=== PATIENT | male | born 1950 | race Caucasian/White ===

== ENCOUNTER 2019-02-27 06:47 | Day surgery (SDC) | payer OTHER ==
[2019-02-27 07:33] VITALS: BMI 32.8
[2019-02-27 08:31] VITALS: TEMP 97.9
[2019-02-27 09:07] VITALS: PULSE 60
[2019-02-27 09:29] VITALS: BP 120/68
--- NOTE | 2019-02-28 10:23 | PATH ---
Surgical Pathology Report Patient Name: JULEE TRAMMELL [facility]. Rec. #: [id number] /Age/Gender: 1950 (Age: 68) / M Account: [id number] Location: U-ENDOSCOPY Taken: 02/27/2019 Received: 02/27/2019 Reported: 02/28/2019 Physicians: Angie Guo M.D. Specimen(s) Received A: DUODENUM, SECOND PORTION AND BULB B: ANTRUM C: GE JUNCTION Clinical History Abdominal pain Postoperative diagnosis: GERD, gastritis Final Diagnosis A. DUODENUM, SECOND PORTION AND BULB, BIOPSY: DUODENAL MUCOSA WITHOUT SIGNIFICANT PATHOLOGIC FINDINGS. B. STOMACH, ANTRUM, BIOPSY: GASTRIC ANTRAL MUCOSA WITH MILD CHRONIC GASTRITIS. IMMUNOHISTOCHEMICAL STAIN FOR H. PYLORI IS NEGATIVE. C. GE JUNCTION, BIOPSY: SQUAMOCOLUMNAR MUCOSA WITH MILD CHRONIC INFLAMMATION AND CHANGES OF SEVERE REFLUX ESOPHAGITIS. NO INTESTINAL METAPLASIA OR DYSPLASIA IDENTIFIED. Electronically Signed Cathy Mills M.D. Gross Description A. Received in formalin, labeled "second portion and bulb of duodenum biopsy" are 4 soto, irregular portions of soft tissue ranging from 0.2-0.5 cm. in greatest dimension. The specimens are submitted in toto in one cassette. B. Received in formalin, labeled "antrum biopsy" are 4 soto, irregular portions of soft tissue ranging from 0.1-0.5 cm. in greatest dimension. The specimens are submitted in toto in one cassette. C. Received in formalin, labeled "GE junction biopsy" are 4 soto, irregular portions of soft tissue ranging from 0.2-0.5 cm. in greatest dimension. The specimens are submitted in toto in one cassette. 02/27/2019 [facility]02/27/2019
== END 2019-02-27 09:29 | disposition home or self-care (01) ==
LOC: JASU-ENDO 06:47
PROVIDERS: ATTEND Internal Medicine Gastroenterology
PROC: 0DB68ZX Excision of Stomach, Via Natural or Artificial Opening Endoscopic, Diagnostic (ICD-10-PCS; 2019-02-27)
PROC: 0DB48ZX Excision of Esophagogastric Junction, Via Natural or Artificial Opening Endoscopic, Diagnostic (ICD-10-PCS; 2019-02-27)
PROC: 0DB98ZX Excision of Duodenum, Via Natural or Artificial Opening Endoscopic, Diagnostic (ICD-10-PCS; principal; 2019-02-27 08:00)
DX: K29.50 Unspecified chronic gastritis without bleeding (principal); K21.0 Gastro-esophageal reflux disease with esophagitis; K44.9 Diaphragmatic hernia without obstruction or gangrene; R68.81 Early satiety; I10 Essential (primary) hypertension; E11.9 Type 2 diabetes mellitus without complications; E78.5 Hyperlipidemia, unspecified; I25.10 Atherosclerotic heart disease of native coronary artery without angina pectoris; I25.2 Old myocardial infarction; Z95.5 Presence of coronary angioplasty implant and graft
CPT/HCPCS: 82962; 88305-TC; 88342-TC

== ENCOUNTER 2020-11-29 05:01 | Day surgery (SDC) | payer BC ==
[2020-11-27 13:43] VITALS: BMI 31.6
[2020-11-29 11:46] VITALS: TEMP 97.3
[2020-11-29 12:52] VITALS: BP 133/70; PULSE 57
== END 2020-11-29 12:40 | disposition home or self-care (01) ==
LOC: JASU-ENDO 05:01
PROVIDERS: ATTEND Internal Medicine Gastroenterology
PROC: 0DBN8ZX Excision of Sigmoid Colon, Via Natural or Artificial Opening Endoscopic, Diagnostic (ICD-10-PCS; 2020-11-29)
PROC: 0DB98ZX Excision of Duodenum, Via Natural or Artificial Opening Endoscopic, Diagnostic (ICD-10-PCS; 2020-11-29)
PROC: 0DB78ZX Excision of Stomach, Pylorus, Via Natural or Artificial Opening Endoscopic, Diagnostic (ICD-10-PCS; 2020-11-29)
PROC: 0DB48ZX Excision of Esophagogastric Junction, Via Natural or Artificial Opening Endoscopic, Diagnostic (ICD-10-PCS; 2020-11-29)
PROC: 0DBP8ZX Excision of Rectum, Via Natural or Artificial Opening Endoscopic, Diagnostic (ICD-10-PCS; principal; 2020-11-29 10:50)
DX: Z12.11 Encounter for screening for malignant neoplasm of colon (principal); D12.8 Benign neoplasm of rectum; D12.5 Benign neoplasm of sigmoid colon; K57.30 Diverticulosis of large intestine without perforation or abscess without bleeding; K64.8 Other hemorrhoids; K21.9 Gastro-esophageal reflux disease without esophagitis; K44.9 Diaphragmatic hernia without obstruction or gangrene; K29.40 Chronic atrophic gastritis without bleeding; K25.3 Acute gastric ulcer without hemorrhage or perforation; K22.2 Esophageal obstruction; Z68.31 Body mass index [BMI] 31.0-31.9, adult; R68.81 Early satiety; Z86.010 Personal history of colon polyps; I10 Essential (primary) hypertension; E11.9 Type 2 diabetes mellitus without complications
CPT/HCPCS: 88305-TC; 88342-TC

== ENCOUNTER 2022-08-20 13:55 | Inpatient (IN) | payer OTHER ==
[2022-08-20 15:15] LABS: BASO % 0.2 % (0-2.0); EOS % 4.5 % (0-4.5); HEMATOCRIT 39.4 % (35.4-49); HEMOGLOBIN 12.9 GM/dL (11.7-16.9); LYMPH % 24.7 % (8-40); MCH 29.6 pg (25.7-33.7); MCHC 32.6 g/dl (32.0-35.9); MEAN CELL VOLUME 90.8 fl (80-96); MEAN PLT VOLUME 11.3 fl (7.5-11.1); MONO % 1.8 % (3.8-10.2); NEUT % 68.8 % (42.8-82.8); RBC 4.34 M/mm3 (4.00-5.60); RDW 13.7 % (11.9-15.9); WHITE BLOOD COUNT 2.9 K/mm3 (4.0-10.0)
[2022-08-20 15:20] LABS: INR 1.09 (0.83-1.09); PROTHROMBIN TIME (PATIENT) 12.6 SEC (9.7-13.0)
[2022-08-20 15:23] LABS: ACTIVATED PTT 30.2 SECONDS (25.2-36.5)
[2022-08-20 15:26] LABS: PLATELET COUNT 12 10^3/uL (134-434)
[2022-08-20 15:31] LABS: CHLORIDE 104 mmol/L (98-107); POTASSIUM 4.1 mmol/L (3.5-5.1); SODIUM 138 mmol/L (136-145)
[2022-08-20 15:32] LABS: BLOOD UREA NITROGEN 12.2 mg/dL (7-18)
[2022-08-20 15:33] LABS: ALBUMIN 3.4 g/dl (3.4-5.0); ANION GAP 8 MMOL/L (8-16); CALCIUM 8.8 mg/dL (8.5-10.1); CO2 26 mmol/L (21-32)
[2022-08-20 15:34] LABS: GLUCOSE,RANDOM 167 mg/dL (74-106)
[2022-08-20 15:36] LABS: SGPT/ALT 66 U/L (13-61)
[2022-08-20 15:37] LABS: CREATININE 0.8 mg/dL (0.55-1.3); SGOT/AST 66 U/L (15-37)
[2022-08-20 15:38] LABS: BILIRUBIN,TOTAL 0.5 mg/dL (0.2-1); TOT PROT 7.4 g/dl (6.4-8.2)
[2022-08-20 15:39] LABS: ALK PHOS 58 U/L (45-117)
[2022-08-20 16:15] LABS: LDH 239 U/L (87-246)
[2022-08-20 16:32] LABS: RETICULOCYTES 0.94 % (0.5-1.5)
[2022-08-20] MEDS ORDERED: DEXAMETHASONE SOD PHOSPHATE 10 MG/1 ML VIAL IVPB ONE (21:25)
[2022-08-20] MEDS: INSULIN SLIDING SCALE (NOVOLOG) 1 VIAL SQ SCH (22:29)
[2022-08-21] MEDS: INSULIN SLIDING SCALE (NOVOLOG) 1 VIAL SQ SCH ×4 (06:29→21:40)
[2022-08-21 09:12] LABS: HEMATOCRIT 39.9 % (35.4-49); HEMOGLOBIN 13.4 GM/dL (11.7-16.9); MCH 29.9 pg (25.7-33.7); MCHC 33.6 g/dl (32.0-35.9); MEAN CELL VOLUME 89.1 fl (80-96); MEAN PLT VOLUME 11.1 fl (7.5-11.1); RBC 4.48 M/mm3 (4.00-5.60); RDW 13.9 % (11.9-15.9)
[2022-08-21] MEDS: FOLIC ACID 1 MG TABLET (FP) PO SCH (09:27)
[2022-08-21] MEDS: FUROSEMIDE 40 MG TABLET (FP) PO SCH (09:27)
[2022-08-21] MEDS: RAMIPRIL 5 MG CAPSULE PO SCH (09:28)
[2022-08-21 09:29] LABS: PLATELET COUNT 6 10^3/uL (134-434); WHITE BLOOD COUNT 1.7 K/mm3 (4.0-10.0)
[2022-08-21 09:35] LABS: ALBUMIN 3.5 g/dl (3.4-5.0); BLOOD UREA NITROGEN 16.5 mg/dL (7-18); CALCIUM 8.6 mg/dL (8.5-10.1); MAGNESIUM 1.8 mg/dL (1.8-2.4)
[2022-08-21 09:37] LABS: CREATININE 0.9 mg/dL (0.55-1.3); PHOSPHOROUS 1.8 mg/dL (2.5-4.9)
[2022-08-21 09:40] LABS: BILIRUBIN,TOTAL 0.7 mg/dL (0.2-1); TOT PROT 7.7 g/dl (6.4-8.2)
[2022-08-21] MEDS ORDERED: CYANOCOBALAMIN (VITAMIN B-12) 1000 MCG/1 ML VIAL IM SCH (10:00)
[2022-08-21] MEDS ORDERED: DEXAMETHASONE 4 MG TABLET (FP) PO SCH (10:00)
[2022-08-21] MEDS ORDERED: INSULIN (NOVOLOG) ASPART 100 UNITS/ML 10ML VIAL ONE ×3 (11:26→21:38)
[2022-08-21 11:49] LABS: ANISOCYTOSIS 2+; MACROCYTOSIS 0; OVALOCYTE 2+
[2022-08-21] MEDS ORDERED: ACETAMINOPHEN 325 MG TABLET (FP) PO PRN (11:49)
[2022-08-21] MEDS ORDERED: IMMUN GLOB G(IGG)/PRO/IGA 0-50 400 ML, IMMUN GLOB G(IGG)/PRO/IGA 0-50 100 ML IVPB ONE (12:00)
[2022-08-21] MEDS: DEXAMETHASONE 4 MG TABLET (FP) PO SCH (21:32)
[2022-08-22] MEDS: INSULIN SLIDING SCALE (NOVOLOG) 1 VIAL SQ SCH ×4 (06:03→21:34)
[2022-08-22] MEDS ORDERED: INSULIN (LEVEMIR) 100 UNITS/ML UNITS SQ SCH (10:00)
[2022-08-22 10:03] LABS: HEMATOCRIT 36.2 % (35.4-49); HEMOGLOBIN 12.4 GM/dL (11.7-16.9); MCH 30.5 pg (25.7-33.7); MCHC 34.3 g/dl (32.0-35.9); MEAN CELL VOLUME 88.8 fl (80-96); MEAN PLT VOLUME 8.1 fl (7.5-11.1); RBC 4.07 M/mm3 (4.00-5.60); WHITE BLOOD COUNT 3.9 K/mm3 (4.0-10.0)
[2022-08-22] MEDS: CYANOCOBALAMIN (VITAMIN B-12) 1000 MCG/1 ML VIAL IM SCH (10:04)
[2022-08-22] MEDS: FOLIC ACID 1 MG TABLET (FP) PO SCH (10:04)
[2022-08-22] MEDS: FUROSEMIDE 40 MG TABLET (FP) PO SCH (10:04)
[2022-08-22] MEDS: RAMIPRIL 5 MG CAPSULE PO SCH (10:05)
[2022-08-22 10:07] LABS: PLATELET COUNT 27 10^3/uL (134-434)
[2022-08-22 10:23] LABS: ALBUMIN 3.2 g/dl (3.4-5.0); BLOOD UREA NITROGEN 19.9 mg/dL (7-18); CALCIUM 8.7 mg/dL (8.5-10.1)
[2022-08-22 10:26] LABS: CREATININE 0.9 mg/dL (0.55-1.3)
[2022-08-22 10:28] LABS: BILIRUBIN,TOTAL 0.6 mg/dL (0.2-1); TOT PROT 8.2 g/dl (6.4-8.2)
[2022-08-22] MEDS ORDERED: IMMUN GLOB G(IGG)/PRO/IGA 0-50 400 ML IVPB ONE (11:00)
[2022-08-22] MEDS: INSULIN (LEVEMIR) 100 UNITS/ML UNITS SQ SCH ×2 (11:03→21:33)
[2022-08-22 16:41] VITALS: BMI 28.3
[2022-08-22 18:00] LABS: HEMATOCRIT 36.4 % (35.4-49); HEMOGLOBIN 11.9 GM/dL (11.7-16.9); MCHC 32.6 g/dl (32.0-35.9); RBC 3.96 M/mm3 (4.00-5.60); RDW 13.7 % (11.9-15.9); WHITE BLOOD COUNT 4.6 K/mm3 (4.0-10.0)
[2022-08-22 18:06] LABS: PLATELET COUNT 22 10^3/uL (134-434)
[2022-08-22] MEDS ORDERED: INSULIN (NOVOLOG) ASPART 100 UNITS/ML 10ML VIAL ONE (21:04)
[2022-08-22] MEDS ORDERED: INSULIN (LEVEMIR) 100 UNITS/ML UNITS SQ ONE (21:04)
[2022-08-22] MEDS: DEXAMETHASONE 4 MG TABLET (FP) PO SCH (21:27)
[2022-08-23] MEDS: INSULIN (LEVEMIR) 100 UNITS/ML UNITS SQ SCH ×2 (06:04→21:22)
[2022-08-23] MEDS: INSULIN SLIDING SCALE (NOVOLOG) 1 VIAL SQ SCH ×4 (06:04→21:23)
[2022-08-23 08:54] LABS: HEMATOCRIT 34.3 % (35.4-49); HEMOGLOBIN 11.6 GM/dL (11.7-16.9); MCH 30.1 pg (25.7-33.7); MEAN CELL VOLUME 88.5 fl (80-96); MEAN PLT VOLUME 8.1 fl (7.5-11.1); RBC 3.87 M/mm3 (4.00-5.60); RDW 13.8 % (11.9-15.9); WHITE BLOOD COUNT 3.3 K/mm3 (4.0-10.0)
[2022-08-23 09:18] LABS: POTASSIUM 4.3 mmol/L (3.5-5.1)
[2022-08-23] MEDS: FOLIC ACID 1 MG TABLET (FP) PO SCH (09:19)
[2022-08-23] MEDS: RAMIPRIL 5 MG CAPSULE PO SCH (09:19)
[2022-08-23] MEDS: CYANOCOBALAMIN (VITAMIN B-12) 1000 MCG/1 ML VIAL IM SCH (09:19)
[2022-08-23] MEDS: FUROSEMIDE 40 MG TABLET (FP) PO SCH (09:19)
[2022-08-23 09:20] LABS: ALBUMIN 2.8 g/dl (3.4-5.0); BLOOD UREA NITROGEN 23.8 mg/dL (7-18)
[2022-08-23 09:23] LABS: CALCIUM 8.8 mg/dL (8.5-10.1)
[2022-08-23 09:24] LABS: CREATININE 0.9 mg/dL (0.55-1.3)
[2022-08-23 09:26] LABS: BILIRUBIN,TOTAL 0.4 mg/dL (0.2-1); TOT PROT 8.1 g/dl (6.4-8.2)
[2022-08-23] MEDS ORDERED: INSULIN SLIDING SCALE (NOVOLOG) 1 VIAL SQ SCH (11:00)
[2022-08-23 11:01] LABS: PLATELET COUNT 14 10^3/uL (134-434)
[2022-08-23] MEDS ORDERED: INSULIN (NOVOLOG) ASPART 100 UNITS/ML 10ML VIAL ONE ×2 (16:52→21:09)
[2022-08-23] MEDS: INSULIN (NOVOLOG) ASPART 100 UNITS/ML 10ML VIAL SQ SCH (17:07)
[2022-08-23] MEDS: DEXAMETHASONE 4 MG TABLET (FP) PO SCH (21:19)
[2022-08-24] MEDS: INSULIN SLIDING SCALE (NOVOLOG) 1 VIAL SQ SCH ×4 (06:14→21:40)
[2022-08-24] MEDS: INSULIN (LEVEMIR) 100 UNITS/ML UNITS SQ SCH (06:14)
[2022-08-24] MEDS: INSULIN (NOVOLOG) ASPART 100 UNITS/ML 10ML VIAL SQ SCH (06:14)
[2022-08-24] MEDS: FUROSEMIDE 40 MG TABLET (FP) PO SCH (09:10)
[2022-08-24] MEDS: FOLIC ACID 1 MG TABLET (FP) PO SCH (09:10)
[2022-08-24] MEDS: PANTOPRAZOLE 40 MG TABLET PO SCH (09:10)
[2022-08-24 09:18] LABS: HEMATOCRIT 37.1 % (35.4-49); HEMOGLOBIN 12.6 GM/dL (11.7-16.9); MCH 29.9 pg (25.7-33.7); MCHC 33.9 g/dl (32.0-35.9); MEAN CELL VOLUME 88.2 fl (80-96); MEAN PLT VOLUME 8.7 fl (7.5-11.1); RBC 4.21 M/mm3 (4.00-5.60); RDW 13.9 % (11.9-15.9); WHITE BLOOD COUNT 3.5 K/mm3 (4.0-10.0)
[2022-08-24 09:23] LABS: POTASSIUM 4.2 mmol/L (3.5-5.1)
[2022-08-24 09:36] LABS: ALBUMIN 3.1 g/dl (3.4-5.0); CALCIUM 8.7 mg/dL (8.5-10.1)
[2022-08-24 09:37] LABS: BLOOD UREA NITROGEN 24.1 mg/dL (7-18)
[2022-08-24 09:40] LABS: BILIRUBIN,TOTAL 0.6 mg/dL (0.2-1); TOT PROT 8.3 g/dl (6.4-8.2)
[2022-08-24 10:10] LABS: PLATELET COUNT 11 10^3/uL (134-434)
[2022-08-24] MEDS: RAMIPRIL 5 MG CAPSULE PO SCH (10:53)
[2022-08-24] MEDS: CYANOCOBALAMIN (VITAMIN B-12) 1000 MCG/1 ML VIAL IM SCH (10:53)
[2022-08-24] MEDS ORDERED: INSULIN (NOVOLOG) ASPART 100 UNITS/ML 10ML VIAL ONE ×2 (11:48→17:10)
[2022-08-24 20:55] LABS: HEMATOCRIT 34.1 % (35.4-49); HEMOGLOBIN 11.3 GM/dL (11.7-16.9); MCH 29.9 pg (25.7-33.7); MCHC 33.1 g/dl (32.0-35.9); MEAN CELL VOLUME 90.3 fl (80-96); MEAN PLT VOLUME 8.5 fl (7.5-11.1); RBC 3.78 M/mm3 (4.00-5.60); RDW 13.8 % (11.9-15.9); WHITE BLOOD COUNT 4.4 K/mm3 (4.0-10.0)
[2022-08-24 20:57] LABS: PLATELET COUNT 35 10^3/uL (134-434)
[2022-08-25] MEDS: INSULIN SLIDING SCALE (NOVOLOG) 1 VIAL SQ SCH ×4 (06:03→21:38)
[2022-08-25] MEDS: RAMIPRIL 5 MG CAPSULE PO SCH (10:39)
[2022-08-25] MEDS: FOLIC ACID 1 MG TABLET (FP) PO SCH (10:40)
[2022-08-25] MEDS: CYANOCOBALAMIN (VITAMIN B-12) 1000 MCG/1 ML VIAL IM SCH (10:40)
[2022-08-25] MEDS: PANTOPRAZOLE 40 MG TABLET PO SCH (10:40)
[2022-08-25] MEDS: FUROSEMIDE 40 MG TABLET (FP) PO SCH (10:40)
[2022-08-25] MEDS ORDERED: INSULIN (NOVOLOG) ASPART 100 UNITS/ML 10ML VIAL ONE (11:20)
[2022-08-25 12:24] LABS: POTASSIUM 3.6 mmol/L (3.5-5.1)
[2022-08-25 12:29] LABS: CALCIUM 8.7 mg/dL (8.5-10.1)
[2022-08-25 12:30] LABS: ALBUMIN 2.8 g/dl (3.4-5.0); BLOOD UREA NITROGEN 25.8 mg/dL (7-18)
[2022-08-25 12:32] LABS: BILIRUBIN,TOTAL 0.8 mg/dL (0.2-1)
[2022-08-25 12:35] LABS: TOT PROT 7.1 g/dl (6.4-8.2)
[2022-08-25 13:42] LABS: EOS % 0.4 % (0-4.5); HEMOGLOBIN 11.9 GM/dL (11.7-16.9); LYMPH % 30.3 % (8-40); MCH 30.3 pg (25.7-33.7); MCHC 34.1 g/dl (32.0-35.9); MEAN CELL VOLUME 88.9 fl (80-96); MEAN PLT VOLUME 8.5 fl (7.5-11.1); MONO % 13.4 % (3.8-10.2); NEUT % 55.9 % (42.8-82.8); RBC 3.94 M/mm3 (4.00-5.60); RDW 13.8 % (11.9-15.9); WHITE BLOOD COUNT 3.8 K/mm3 (4.0-10.0)
[2022-08-25 13:46] LABS: PLATELET COUNT 17 10^3/uL (134-434)
[2022-08-26] MEDS: INSULIN SLIDING SCALE (NOVOLOG) 1 VIAL SQ SCH ×4 (06:03→23:00)
[2022-08-26 09:24] LABS: HEMATOCRIT 36.9 % (35.4-49); MCH 29.6 pg (25.7-33.7); MCHC 32.5 g/dl (32.0-35.9); MEAN PLT VOLUME 9.2 fl (7.5-11.1); RBC 4.06 M/mm3 (4.00-5.60); RDW 13.8 % (11.9-15.9)
[2022-08-26 09:42] LABS: PLATELET COUNT 15 10^3/uL (134-434)
[2022-08-26 09:43] LABS: POTASSIUM 3.9 mmol/L (3.5-5.1)
[2022-08-26 09:51] LABS: ALBUMIN 2.7 g/dl (3.4-5.0); BLOOD UREA NITROGEN 19.3 mg/dL (7-18)
[2022-08-26 09:54] LABS: BILIRUBIN,TOTAL 0.3 mg/dL (0.2-1); TOT PROT 6.9 g/dl (6.4-8.2)
[2022-08-26 09:56] LABS: CREATININE 0.9 mg/dL (0.55-1.3)
[2022-08-26] MEDS: PANTOPRAZOLE 40 MG TABLET PO SCH (10:03)
[2022-08-26] MEDS: FUROSEMIDE 40 MG TABLET (FP) PO SCH (10:03)
[2022-08-26] MEDS: FOLIC ACID 1 MG TABLET (FP) PO SCH (10:03)
[2022-08-26] MEDS: RAMIPRIL 5 MG CAPSULE PO SCH (10:04)
[2022-08-26] MEDS: CYANOCOBALAMIN (VITAMIN B-12) 1000 MCG/1 ML VIAL IM SCH (10:04)
[2022-08-26 13:07] LABS: HIV INTERPRETATION NEGATIVE (NEGATIVE)
[2022-08-26] MEDS ORDERED: INSULIN (NOVOLOG) ASPART 100 UNITS/ML 10ML VIAL ONE (23:09)
[2022-08-27] MEDS: INSULIN SLIDING SCALE (NOVOLOG) 1 VIAL SQ SCH ×4 (06:26→21:16)
[2022-08-27] MEDS ORDERED: INSULIN (NOVOLOG) ASPART 100 UNITS/ML 10ML VIAL ONE ×2 (07:36→20:53)
[2022-08-27] MEDS: RAMIPRIL 5 MG CAPSULE PO SCH (09:19)
[2022-08-27] MEDS: PANTOPRAZOLE 40 MG TABLET PO SCH (09:19)
[2022-08-27] MEDS: FOLIC ACID 1 MG TABLET (FP) PO SCH (09:19)
[2022-08-27] MEDS: FUROSEMIDE 40 MG TABLET (FP) PO SCH (09:19)
[2022-08-27] MEDS: CYANOCOBALAMIN (VITAMIN B-12) 1000 MCG/1 ML VIAL IM SCH (09:19)
[2022-08-27 09:55] LABS: HEMATOCRIT 36.8 % (35.4-49); HEMOGLOBIN 12.5 GM/dL (11.7-16.9); MCH 30.1 pg (25.7-33.7); MCHC 33.8 g/dl (32.0-35.9); MEAN CELL VOLUME 88.9 fl (80-96); MEAN PLT VOLUME 9.3 fl (7.5-11.1); RBC 4.14 M/mm3 (4.00-5.60); RDW 14.3 % (11.9-15.9); WHITE BLOOD COUNT 3.9 K/mm3 (4.0-10.0)
[2022-08-27 10:21] LABS: PLATELET COUNT 18 10^3/uL (134-434)
[2022-08-27 12:19] VITALS: RESP 20
[2022-08-27] MEDS: CHOLESTYRAMINE/ASPARTAME 4 GM PACKET PO SCH (17:05)
[2022-08-27 17:07] LABS: PARV B19 IGG 5.6 index (0.0-0.8); PARV B19 IGM 0.1 index (0.0-0.8)
[2022-08-28] MEDS: INSULIN SLIDING SCALE (NOVOLOG) 1 VIAL SQ SCH ×2 (06:04→11:29)
[2022-08-28 07:10] VITALS: TEMP 97.6
[2022-08-28] MEDS: PANTOPRAZOLE 40 MG TABLET PO SCH (09:28)
[2022-08-28] MEDS: RAMIPRIL 5 MG CAPSULE PO SCH (09:28)
[2022-08-28] MEDS: FUROSEMIDE 40 MG TABLET (FP) PO SCH (09:28)
[2022-08-28] MEDS: FOLIC ACID 1 MG TABLET (FP) PO SCH (09:28)
[2022-08-28 09:50] LABS: HEMATOCRIT 36.1 % (35.4-49); HEMOGLOBIN 12.1 GM/dL (11.7-16.9); MCHC 33.5 g/dl (32.0-35.9); MEAN CELL VOLUME 89.7 fl (80-96); RBC 4.03 M/mm3 (4.00-5.60); RDW 14.3 % (11.9-15.9); WHITE BLOOD COUNT 2.7 K/mm3 (4.0-10.0)
[2022-08-28] MEDS ORDERED: CYANOCOBALAMIN 1,000 MCG TABLET (FP) PO SCH (10:00)
[2022-08-28 10:04] LABS: PLATELET COUNT 16 10^3/uL (134-434)
[2022-08-28 10:27] LABS: POTASSIUM 3.9 mmol/L (3.5-5.1)
[2022-08-28 10:28] LABS: CALCIUM 8.1 mg/dL (8.5-10.1)
[2022-08-28 10:29] LABS: BLOOD UREA NITROGEN 14.3 mg/dL (7-18)
[2022-08-28 10:32] LABS: CREATININE 0.8 mg/dL (0.55-1.3)
[2022-08-28 10:53] VITALS: BP 121/59; PULSE 57
[2022-08-28] MEDS ORDERED: DEXAMETHASONE 4 MG TABLET (FP) PO ONE (12:00)
[2022-08-28] MEDS: CHOLESTYRAMINE/ASPARTAME 4 GM PACKET PO SCH (12:04)
== END 2022-08-28 13:55 | disposition home or self-care (01) | DRG 813 ==
LOC: JER 13:55 → JERBED 16:24 → J6S 21:30 → OBSVTOIN 08-21 10:15 → J6S 08-21 16:45 → UNDODISIN 08-27 17:16
PROVIDERS: ADMIT Internal Medicine; ATTEND Internal Medicine
PROC: 30233R1 Transfusion of Nonautologous Platelets into Peripheral Vein, Percutaneous Approach (ICD-10-PCS; principal; 2022-08-21)
DX: D69.6 Thrombocytopenia, unspecified (principal); D72.819 Decreased white blood cell count, unspecified; M06.9 Rheumatoid arthritis, unspecified; E11.65 Type 2 diabetes mellitus with hyperglycemia; I10 Essential (primary) hypertension; E78.5 Hyperlipidemia, unspecified; I25.10 Atherosclerotic heart disease of native coronary artery without angina pectoris; E53.8 Deficiency of other specified B group vitamins; T39.4X5A Adverse effect of antirheumatics, not elsewhere classified, initial encounter; Y92.89 Other specified places as the place of occurrence of the external cause; Z95.5 Presence of coronary angioplasty implant and graft
CPT/HCPCS: 0241U-QW; 36415; 36430; 70450-TC; 71045-TC-FY; 76700-TC; 80048; 80053; 82525; 82607; 82746; 82930; 82962; 83010; 83036; 83615; 83735; 84100; 84443; 84484; 85025; 85027; 85032; 85045; 85379; 85384; 85610; 85730; 86618; 86704; 86747; 86803; 86850; 86900; 86901; 87340; 87389; 87517; 87798; 93005; 93010; 99285-25; G0378; J1100; J1459; P9034